=== PATIENT | male | born 1970 | race Caucasian/White ===

== ENCOUNTER 2017-02-11 16:57 | Emergency (ER) | payer OTHER ==
[~2017-02-11] VITALS: Ht 175.3 cm; Wt 97.7 kg
[2017-02-11 16:59] VITALS: BP 101/72; PULSE 72; RESP 16; O2SAT 96
[2017-02-11 17:43] LABS: BASOPHILS % (AUTO) 0.2 % (0-3); EOSINOPHILS % (AUTO) 3.6 % (0-5); MONOCYTES % (AUTO) 9.2 % (4-12); Mean Corpuscular Volume 81.7 fL (81-100); NEUTROPHILS % (AUTO) 64.2 % (40-74); Platelet Count 181 bil/L (150-400)
[2017-02-11 18:02] LABS: TROPONIN T < 0.010 ug/L (0.0-0.011)
[2017-02-11 18:07] LABS: Lipase 74 U/L (13-60)
[2017-02-11] MEDS ORDERED: 0.9% Sodium Chloride 1,000 ML IV ONE (18:15)
--- NOTE | 2017-02-11 18:18 | ED.REPORT ---
HPI-Chest Pain 40 and Over Date of Service Feb 11, 2017 ED Provider: Js Mane MD Pt is a 46 year old male presenting to the ED complaining of 4/10 sudden onset left sided abdominal pain while driving just prior to arrival. Denies chest pain , SOB, constipation, testicular pain, or any other symptoms at this time. He reports that he has had similar symptoms previously a couple years ago when he had pancreatitis. The pain is exacerbated by nothing and does not radiate. He reports feeling fine yesterday. No other complaints at this time. Nursing Notes Stated Complaint: CHEST PAIN Chief Complaint: Chest Pain Nursing Notes Reviewed: Yes Allergies: Coded Allergies: Penicillins (Verified Allergy, Severe, ITCHING, 02/11/17) General Time Seen by MD: 18:15 Chief Complaint Other (Abdominal pain) Hx Obtained From: Patient Arrived By: Walk-in Sudden in Onset?: Yes Onset Occurred: Just prior to arrival Symptom Duration: Since onset Quality: Painful Radiation: : Does not radiate Severity: Current: Pain level 4 out of 10 Severity: Maximum: Pain level 9 out of 10 Recent Healthcare: No recent doctor visit, No recent hospitalization Similar Sx Previous: Yes Past Medical History Past Medical History Pancreatitis Sleep apnea Past Surgical History C3-C7 surgery Reconstructive ankle surgery Reports: Cholecystectomy Smoking History Never Smoker Social History Alcohol Use: Denies alcohol use Drug Use: Denies drug use Ambulatory Status Independent Review of Systems Constitutional: Denies: Fever Respiratory: Denies: Shortness of breath Cardiovascular: Denies: Chest pain GI: Reports: Abdominal pain, Denies: Constipation, Vomiting Complete sys rev & neg: except as marked. Male: Denies Testicular pain Physical Exam Physical Exam Notes: Nursing note and vitals reviewed. Constitutional: Well-developed, well-nourished. Not diaphoretic. Head: Normocephalic and atraumatic. Mouth/Throat: Oropharynx is clear and moist. No oropharyngeal exudate. Eyes: EOM are normal. Pupils are equal, round, and reactive to light. Neck: Supple, no tracheal deviation. Cardiovascular: Normal rate, regular rhythm. Equal and intact distal pulses throughout. Pulmonary/Chest: Effort normal and breath sounds normal. No respiratory distress. Abdominal: Soft. No distension. Mild epigastric and LUQ tenderness to palpation. Bowel sounds present. Musculoskeletal: Range of motion grossly intact, moving all extremities. No edema or tenderness appreciated. Neurological: AOx3. Grossly nonfocal exam. Strength and sensation intact and equal to bilateral upper and lower extremities. Skin: Warm and dry, no rashes or pallor appreciated. Psychiatric: Appropriate mood and affect. Behavior appears normal. Initial Vital Signs Vital Signs (First) Date Time Temp Pulse Resp B/P Pulse Ox O2 Delivery O2 Flow Rate FiO2 02/11/17 16:59 36.6 72 16 101/72 96 Room Air Initial VS: Reviewed Interpretation & Diagnostics Lab Results Interpretation Result Diagram: 02/11/17 1723 02/11/17 1723 Test 02/11/17 17:23 02/11/17 20:25 White Blood Count 6.1th/mm3 (3.8-10.1) Red Blood Count 5.07mil/mm3 (4.40-5.80) Hemoglobin 14.7g/dL (13.8-17.2) Hematocrit 41.4% (41.0-50.0) Mean Corpuscular Volume 81.7fL (81-100) Mean Corpuscular Hemoglobin 29.0pg (27.0-35.0) Mean Corpuscular Hemoglobin Concent 35.5% (32.0-37.0) Red Cell Distribution Width 13.5% (12.3-15.4) Platelet Count 181bil/L (150-400) Neutrophils (%) (Auto) 64.2% (40-74) Lymphocytes (%) (Auto) 22.6% (14-46) Monocytes (%) (Auto) 9.2% (4-12) Eosinophils (%) (Auto) 3.6% (0-5) Basophils (%) (Auto) 0.2% (0-3) Prothrombin Time 10.6sec (8.1-12.5) Prothromb Time International Ratio 0.99ratio Activated Partial Thromboplast Time 28.0sec (22.8-33.0) Sodium Level 140mEq/L (134-144) Potassium Level 4.1mEq/L (3.5-5.2) Chloride Level 102mEq/L (97-108) Carbon Dioxide Level 23mmol/L (18-29) Blood Urea Nitrogen 15mg/dL (6-24) Creatinine 0.94mg/dL (0.76-1.27) Estimat Glomerular Filtration Rate 91mL/min (>59) Glucose Level 106mg/dL (60-99) Calcium Level 9.2mg/dL (8.5-10.1) Magnesium Level 2.0mg/dL (1.6-2.6) Total Bilirubin 0.6mg/dL (0.0-1.2) Aspartate Amino Transf (AST/SGOT) 33U/L (0-50) Alanine Aminotransferase (ALT/SGPT) 43U/L (0-44) Alkaline Phosphatase 44U/L (25-150) Total Protein 7.2g/dL (6.4-8.4) Albumin 4.2g/dL (3.4-5.0) Lipase 74U/L (13-60) Hold Rodriguez Top Tube Received (Received) Troponin T < 0.010ug/L (0.0-0.011) ECG Interpretation Time: 17:15 Interpreted by: ED physician Normal ECG Interpretation: Normal rate (67), Normal sinus rhythm X-Ray Chest Interpretation Chest Xray Interpretation: IMPRESSION: No acute disease Dictated by: Rikki Mccord M.D. on 02/11/2017 at 19:16 View: AP & lat Interpretation / Wet Read by: Interpret - Radiologist CT Abd / Pelvis Interpretation IMPRESSION: No acute abnormality. Normal appendix. Gross unremarkable CT appearance of the pancreas however recommend correlation with pancreatic enzymes to exclude occult (early) pancreatitis Dictated by: Rikki Mccord M.D. on 02/11/2017 at 20:19 Study type: Abdominal CT IV contrast Interpretation / Wet Read by: Interpret - Radiologist Re-Eval/Medical Decision Med Decision/Clinical Course 46-year-old male presenting to the ED for evaluation of left-sided abdominal pain since earlier this afternoon. Pain is primarily in the epigastrium and in the left upper quadrant. Lipase mildly elevated at 74; CBC, CMP grossly within normal limits. EKG with no acute ischemic changes to suggest ACS; patient has no chest pain whatsoever, nor has he had any pain in his chest. Troponin negative. No dyspnea. CT scan of the patient's abdomen demonstrates no acute abnormalities that would account for his current symptoms, including a grossly normal-appearing pancreas. Upon reassessment, patient reports improvement in symptoms. He is tolerating by mouth without difficulty. It is possible that he has a very early pancreatitis, however this seems unlikely - this was discussed with the patient. Given his reassuring clinical picture and workup here, it seems reasonable to discharge him home with very careful return precautions and PCP follow-up in the next 1-2 days. I explained that he could be early in the course of a more serious illness, and emphasized the importance of follow-up. Patient verbalized agreement and understanding, no further questions. Time of Eval: 20:31 Patient Status: Condition improved Re-Evaluation/Progress Note: Discussed CT results and plan for discharge. Pt understands and agrees with plan. Time of Eval: 21:02 Patient Status: Condition improved Re-Evaluation/Progress Note: Pt feels better and is tolerating PO well. Counseled Regarding: Diagnosis, Lab results, Need for follow-up, When/why to return to ED Discharge & Departure Primary Impression: Abdominal pain Abdominal location: generalized Qualified Code: R10.84 - Generalized abdominal pain Disposition: Home Discharge Condition All VS Reviewed: Yes Condition: Improved Patient Instructions: Abdominal Pain (ED) Additional Instructions: Your CT scan and labs do not show any dangerous cause for your abdominal pain today, however, as discussed, it's possible that it's too early to detect something more serious. If you develop any new or worsening symptoms return to the ER immediately; please see the attached instructions. Drink lots of fluids and follow up with your primary care doctor in the next few days. Thanks for trusting us with your emergency room care today. Referrals: [facility] [employer] [facility] Portions of this note were transcribed by Jennifer Martin. I, Dr. Mane personally performed the history, physical exam and medical decision-making; I reviewed and confirmed the accuracy of the information in the transcribed note. Signed by: Diane Hernandez, 02/11/2017 at 2101. copies to: [facility] Js Mane MD Feb 11, 2017 18:18 JENNIFER MARTIN Feb 11, 2017 18:42
[2017-02-11 18:29] LABS: INR 0.99 ratio
--- NOTE | 2017-02-11 19:18 | DRSVH ---
PROCEDURE: X-RAY CHEST, TWO VIEWS ([id number]) INDICATIONS: CHEST PAIN TECHNIQUE: 2 views of the chest were acquired. COMPARISON: None. FINDINGS: Surgical changes and devices: Cervical spine postsurgical changes Lungs and pleura: No pleural effusions or pneumothorax. Lungs are clear. Mediastinum: Mediastinal contours are normal. Heart size is normal. Bones and chest wall: No suspicious bony abnormalities. Soft tissues appear unremarkable. IMPRESSION: No acute disease Dictated by: Rikki Mccord M.D. on 02/11/2017 at 19:16 Approved by: Rikki Mccord M.D. on 02/11/2017 at 19:16
[2017-02-11] MEDS ORDERED: Ketorolac 15 mg/mL Inj IVPUSH ONE (19:20)
--- NOTE | 2017-02-11 20:25 | DRSVH ---
PROCEDURE: CT ABDOMEN AND PELVIS WITH CONTRAST ([id number]) INDICATIONS: sudden onset abd pain, hx pancreatitis, very tende TECHNIQUE: After the administration of intravenous contrast, 5 mm thick sections acquired from the diaphragm to the symphysis. 5 mm coronal and sagittal reformats were acquired. For radiation dose reduction, the following was used: automated exposure control, adjustment of mA and/or kV according to patient siz e. COMPARISON: None. FINDINGS: Image quality: Excellent. ABDOMEN: Lung bases: Lung bases are clear. Heart size is normal. Solid organs: Subcapsular hypodensity near the falciform ligament on image 30 is too small to charact erize and indeterminate. This could represent focal fatty infiltration however typically nonspecific. Otherwise liver and spleen are normal in size and enhancement. Gallbladder surgically absent. Bili cole system is non dilated. Pancreas enhances normally. No adrenal nodules. Kidneys demonstrate nor mal size and enhancement, without hydronephrosis. Peritoneum and bowel: Bowel loops demonstrate normal wall thickness and caliber. No free fluid or a ir. Normal appendix. No evidence of acute diverticulitis. The rectum is decompressed and grossly unr emarkable. Nodes and vessels: No retroperitoneal or mesenteric adenopathy by size criteria. Aorta and inferior vena cava are normal in size. Miscellaneous: No ventral hernias. PELVIS: Genitourinary: Bladder wall thickness is normal. Miscellaneous: No inguinal hernias or adenopathy. Bones: No suspicious bony lesions. No vertebral body compression fractures. IMPRESSION: No acute abnormality. Normal appendix. Gross unremarkable CT appearance of the pancreas however recommend correlation with pancreatic enzyme s to exclude occult (early) pancreatitis Dictated by: Rikki Mccord M.D. on 02/11/2017 at 20:19 Approved by: Rikki Mccord M.D. on 02/11/2017 at 20:23
[2017-02-11 21:19] VITALS: BP 112/69; PULSE 68; RESP 16; O2SAT 97
== END 2017-02-11 21:21 | disposition home or self-care (01) ==
LOC: SED 16:57
DX: R10.84 Generalized abdominal pain (principal); Z90.49 Acquired absence of other specified parts of digestive tract; Z88.0 Allergy status to penicillin
CPT/HCPCS: 36415; 71020; 74177; 80053; 83690; 83735; 84484; 85025; 85610; 85730; 93005; 96361; 96374; 99285; J1885; J7030; Q9967